=== PATIENT | male | born 1980 | race Caucasian/White ===

== ENCOUNTER 2023-07-03 08:40 | Emergency (ER) | payer OTHER ==
[2023-07-03 09:19] LABS: HEMATOCRIT 39.6 % (42.0-52.0); HEMOGLOBIN 13.8 g/dL (14.0-18.0); MEAN CORPUSCULAR HEMOGLOBIN 30.8 pg (28.0-32.0); MEAN CORPUSCULAR HGB CONC 34.8 g/dL (32.0-36.0); MEAN CORPUSCULAR VOLUME 88.4 fL (83.0-99.0); MEAN PLATELET VOLUME 9.2 fL (9.4-12.4); PLATELET COUNT,PLT 310 K/uL (150-400); RED BLOOD CELL COUNT 4.48 M/uL (4.52-5.90)
[2023-07-03] MEDS: Piperacillin/Tazobactam 4.5 GM in Sodium Chloride 0.9% 100 ML IV ONE (09:59)
[2023-07-03 10:05] LABS: A/G RATIO 0.7 (0.9-1.6); BILIRUBIN TOTAL 0.5 mg/dL (0.2-1.0); CALCIUM 9.1 mg/dL (8.5-10.1); CARBON DIOXIDE,CO2 27.7 mmol/L (21.0-32.0); CREATININE 1.3 mg/dL (0.8-1.3); EST CRCL DRUG DOSING (CG) 75.53 mL/min; PROTEIN TOTAL,TP 7.6 g/dL (6.4-8.2)
[2023-07-03 10:21] LABS: LACTIC ACID 1.1 mmol/L (0.4-2.0)
[2023-07-03 10:27] LABS: LYMPHOCYTES ABSOLUTE MAN 1.68 K/uL (1.00-4.80); LYMPHOCYTES PERCENT MAN 9 % (24-44); MONOCYTES PERCENT MAN 8 % (0-8); SEG NEUTROPHILS ABSOLUTE MAN 15.52 K/uL (1.80-7.70); SEG NEUTROPHILS PERCENT MAN 83 % (41-71)
[2023-07-03] MEDS: Iopamidol 755 MG/ML 500 ML Multipack Bottle IVPUSH STA (10:42)
== END 2023-07-03 12:45 ==
LOC: MW.ED 08:40
DX: K61.1 Rectal abscess (principal); Z75.8 Other problems related to medical facilities and other health care
CPT/HCPCS: 36415; 74177; 80053; 83605; 85025; 87040; 96365; 99284; J2543; J3490; Q9967; 99285